=== PATIENT | male | born 1945 | race Caucasian/White ===

== ENCOUNTER 2021-08-26 17:33 | Emergency (ER) | payer BC, MEDICARE ==
[~2021-08-26] VITALS: Ht 190.5 cm; Wt 138.6 kg
[2021-08-26 18:19] VITALS: BP 121/73
--- NOTE | 2021-08-26 19:16 | RAD ---
Examination: CT head and cervical spine without contrast CT HEAD INDICATION: Fall, on blood thinners, pain COMPARISON: None Available. Exposure: One or more of the following individualized dose reduction techniques were utilized for thi s examination: 1. Automated exposure control 2. Adjustment of the mA and/or kV according to patient size 3. Use of iterative reconstruction technique TECHNIQUE: 5 mm contiguous axial images were obtained from the skull base to the vertex in both bone and soft tissue algorithm. FINDINGS: Mild bilateral periventricular white matter hypodensities likely chronic small vessel ischemic diseas e. No evidence of acute intracranial hemorrhage. No extra-axial fluid collections. No mass effect or midline shift. Ventricular size is appropriate. Basal cisterns are patent. No fractures identified.Maria-white differentiation is preserved.Globes and orbits are within normal l imits. Paranasal sinuses and mastoid air cells are clear. CT CERVICAL SPINE INDICATION: Reason: fall, on blood thinners / Spl. Instructions: / History: COMPARISON: None Available. Technique: 2.5 mm contiguous axial images were obtained from the skull base through the cervicothorac ic junction in both bone and soft tissue algorithm. Additional sagittal and coronal reconstructions were also performed. FINDINGS: Vertebral body height and alignment are maintained. Cervical lordosis is preserved. The l ateral masses of C1 are aligned upon C2. No fractures identified. The bony canal is patent throughout. Severe intervertebral disc height loss identified throughout the cervical spine likely degenerative c hanges most severe at C5-C6, C6-C7 vertebral level. The paraspinous soft tissues are unremarkable. Visualized intracranial contents are unremarkable. L sahra apices are clear. IMPRESSION: 1. No acute intracranial findings. 2. No acute fracture cervical spine. 3. Severe degenerative changes cervical spine. Electronically signed by: Estuardo Jesus MD (08/26/2021 7:13 PM) [id number]
--- NOTE | 2021-08-26 19:40 | PHYS DOC ---
Past History Additional Past Medical Histor: PULMONARY EMBOLISM 2 YERS AGO, ENLARGED PROSTATE (EARNEST PHILLIPS APRN) Past Surgical History: Gastric Bypass, TURP (EARNEST PHILLIPS APRN) General Adult EDM: Chief Complaint: UPPER EXTREMITY INJURY HPI: HPI: Patient is a 76-year-old male presents to the emergency department for left shoulder and left upper arm pain occurred after he fell today. Patient reports that he was walking up the stairs when he reached down to picking tech a bag and he lost his balance and fell over hitting the left arm on a chair. Patient is on Eliquis. He denies any head injury or loss of conscious. He rates his pain 10 out of 10. No treatment prior to arrival. He reports decreased range of motion but denies any decreased sensation to his extremity. He denies any neck, nausea, vomiting, back pain. (EARNEST PHILLIPS APRN) Review of Systems: Review of Systems: HENT: See HPI GI: See HPI Musculoskeletal: See HPIh Neurologic: See HPI (EARNEST PHILLIPS APRN) Allergies: Allergies: Allergies Coded Allergies Type Severity Reaction Last Updated Verified Sulfa (Sulfonamide Antibiotics) Allergy Intermediate 08/26/21 Yes (EARNEST PHILLIPS APRN) Physical Exam: PE: Constitutional: Well developed, well nourished, no acute distress, non-toxic appearance. [] HENT: Normocephalic, atraumatic, bilateral external ears normal, oropharynx moist, no oral exudates, nose normal. [] Eyes: PERRL EOMI, conjunctiva normal, no discharge. [] Neck: Normal range of motion, no tenderness, supple, no stridor. [] Cardiovascular: Normal peripheral perfusion Lungs & Thorax: Normal work of breathing, no tachypnea Abdomen: Soft and flat Skin: Warm, dry, no erythema, no rash. [] Back: No tenderness, normal range of motion Extremities: No tenderness, no cyanosis, no clubbing, ROM intact, no edema. [] Possible deformity to left shoulder, decreased range of motion, neuro intact, no open wounds or ecchymosis Neurologic: Alert and oriented X 3, normal motor function, normal sensory function, no focal deficits noted. [] Psychologic: Affect normal, judgement normal, mood normal. [] (EARNEST PHILLIPS APRN) Current Patient Data: Vital Signs: Vital Signs Date Time Temp Pulse Resp B/P (MAP) Pulse Ox O2 Delivery O2 Flow Rate FiO2 08/26/21 18:19 98.2 63 18 121/73 (89) 97 Room Air (EARNEST PHILLIPS APRN) EKG: EKG: [] (EARNEST PHILLIPS APRN) Radiology/Procedures: Radiology/Procedures: []OCEDURE: SHOULDER 2+V LEFT EXAM: 1. LEFT SHOULDER 3 VIEWS. 2. LEFT HUMERUS 2 VIEWS. HISTORY: Fall, pain. COMPARISON: None. FINDINGS: A fracture of the left proximal humerus involves the surgical neck and at least the greater tuberosity. The main surgical neck fracture demonstrates greater than one half shaft width anteromedial displacement. The humeral head remains located. No fractures are appreciated more distally within the humerus. There are mild degenerative changes at the acromioclavicular joint for patient age. The joint spaces and alignment of the elbow are grossly maintained. There are atherosclerotic calcifications of the aorta. IMPRESSION: 1. Anteromedially displaced fracture of the left proximal humerus as above. Electronically signed by: Nathalie Hagan MD (08/26/2021 7:37 PM) [facility] DICTATED AND SIGNED BY: KENNY HAGAN MD DATE: 08/26/211934 CC: JAZ NERI MD; EARNEST PHILLIPS APRN; [facility] [place] ~ Examination: CT head and cervical spine without contrast CT HEAD INDICATION: Fall, on blood thinners, pain COMPARISON: None Available. Exposure: One or more of the following individualized dose reduction techniques were utilized for this examination: 1. Automated exposure control 2. Adjustment of the mA and/or kV according to patient size 3. Use of iterative reconstruction technique TECHNIQUE: 5 mm contiguous axial images were obtained from the skull base to the vertex in both bone and soft tissue algorithm. FINDINGS: Mild bilateral periventricular white matter hypodensities likely chronic small vessel ischemic disease. No evidence of acute intracranial hemorrhage. No extra-axial fluid collections. No mass effect or midline shift. Ventricular size is appropriate. Basal cisterns are patent. No fractures identified.Amria-white differentiation is preserved.Globes and orb its are within normal limits. Paranasal sinuses and mastoid air cells are clear. CT CERVICAL SPINE INDICATION: Reason: fall, on blood thinners / Spl. Instructions: / History: COMPARISON: None Available. Technique: 2.5 mm contiguous axial images were obtained from the skull base through the cervicothoracic junction in both bone and soft tissue algorithm. Additional sagittal and coronal reconstructions were also performed. FINDINGS: Vertebral body height and alignment are maintained. Cervical lordosis is preserved. The lateral masses of C1 are aligned upon C2. No fractures identified. The bony canal is patent throughout. Severe intervertebral disc height loss identified throughout the cervical spine likely degenerative changes most severe at C5-C6, C6-C7 vertebral level. The paraspinous soft tissues are unremarkable. Visualized intracranial contents are unremarkable. Lung apices are clear. IMPRESSION: 1. No acute intracranial findings. 2. No acute fracture cervical spine. 3. Severe degenerative changes cervical spine. Electronically signed by: Estuardo Jesus MD (08/26/2021 7:13 PM) [id number] DICTATED AND SIGNED BY: ESTUARDO JESUS MD DATE: 08/26/211903 CC: JAZ NERI MD; EARNEST PHILLIPS APRN; LAUREN [place] (EARNEST PHILLIPS APRN) Heart Score: C/O Chest Pain: N/A Risk Factors: Risk Factors: DM, Current or recent (<one month) smoker, HTN, HLP, family history of CAD, obesity. Risk Scores: Score 0 - 3: 2.5% MACE over next 6 weeks - Discharge Home Score 4 - 6: 20.3% MACE over next 6 weeks - Admit for Clinical Observation Score 7 - 10: 72.7% MACE over next 6 weeks - Early Invasive Strategies (EARNEST PHILLIPS APRN) Course & Med Decision Making: Course & Med Decision Making Pertinent Labs and Imaging studies reviewed. (See chart for details) [] Patient presents to the emergency department following a fall with complaints of left shoulder and upper arm pain. An x-ray was performed that showed a left shoulder dislocation and humeral fracture. Patients pain was treated in ER. I discussed patients case with Dr. Velez with ortho at [facility]. She reviewed patients imaging, she advised placing patient in a sling. We provided patient with her follow up information, he will be discharged with pain medication. He is neurovascularly intact. I discussed with patient all findings and diagnostic testing as well as the need to follow-up with PCP for further evaluation and treatment or return to the ER if any new or worsening symptoms. Strict return precautions were also discussed at length. Patient voiced understanding and agreement with the plan. Patient is hemodynamically stable at the time of disposition. (EARNEST PHILLIPS APRN) Dragon Disclaimer: Dragon Disclaimer: This electronic medical record was generated, in whole or in part, using a voice recognition dictation system. (EARNEST PHILLIPS APRN) Departure Departure: Impression: Primary Impression: Humerus fracture Disposition: HOME / SELF CARE / HOMELESS Condition: GOOD Referrals: LAUREN [place] (PCP) Patient Instructions: Humerus Fracture, Treated with Immobilization Additional Instructions: You were seen in the emergency department today for left shoulder pain after a fall. As we discussed, you have a displaced fracture of your humerus. Please continue to wear the sling. You are being discharged home with pain medication. This medication is hydrocodone and Tylenol and a combination tablet so caution taking too much additional Tylenol. This medication may cause sedation so do not take when you need to be alert, driving a vehicle or with alcohol. You need to follow-up with an orthopedic doctor soon as possible. Please call Dr. Velez's orthopedic office at [phone] on Sunday to set up a follow-up appointment. As we discussed, please monitor for any cool or duskiness of your fingers or decreased sensation. If you develop any of these symptoms you need to return to this emergency department immediately. Scripts Hydrocodone Bit/Acetaminophen (HYDROCODONE-APAP 5-325 ) 1 Each Tablet 1 TAB PO PRN Q6HRS PRN for PAIN for 3 Days, #12 TAB 0 Refills Prov: EARNEST PHILLIPS APRN 08/26/21 Attending Signature Attending Signature I have participated in the care of this patient and I have reviewed and agree with all pertinent clinical information above including history, exam, and recommendations. (JAZ NERI MD) Dragon Disclaimer This chart was dictated in whole or in part using Voice Recognition software in a busy, high-work load, and often noisy Emergency Department environment. It may contain unintended and wholly unrecognized errors or omissions. (JAZ NERI MD) EARNEST PHILLIPS APRN Aug 26, 2021 19:40 JAZ NERI MD Aug 27, 2021 06:43
[2021-08-26] MEDS ORDERED: HYDROcodone/APAP 5/325MG 1 TAB TABLET PO ONE ×2 (19:45→21:00)
[2021-08-26] MEDS ORDERED: HYDR-2155 PO (20:53)
== END 2021-08-26 21:14 | disposition home or self-care (01) ==
LOC: ER 17:33
DX: S42.202A Unspecified fracture of upper end of left humerus, initial encounter for closed fracture (principal); Z79.01 Long term (current) use of anticoagulants; Z88.2 Allergy status to sulfonamides; W18.39XA Other fall on same level, initial encounter; Y93.01 Activity, walking, marching and hiking; Y92.89 Other specified places as the place of occurrence of the external cause; Y99.8 Other external cause status
CPT/HCPCS: 70450; 72125; 73030; 73060; 99284